=== PATIENT | female | born 1980 | race Caucasian/White ===

== ENCOUNTER 2021-01-18 22:28 | Emergency (ER) | payer MEDICAID, SELFPAY ==
[2021-01-18 22:43] VITALS: BP 184/114; PULSE 80; RESP 20; TEMP 36; O2SAT 98
--- NOTE | 2021-01-18 22:44 | ED.GENADUL_ITS ---
Discharge Plan Disposition Patient Disposition: HOME Condition: Good Discharge Details Clinical Impression: Back pain Primary Care Provider: Ashwin Moreno ED Provider: Eugenio Levine Home Meds and New Rx's Prescriptions: New lidocaine [Lidoderm] 1 PATCH patch 1 patch Topical Q24H Qty: 4 RF: 0 Continued cyclobenzaprine 5 mg Tablet 5 mg PO TID PRN PRNRF: 0 Discharge Instructions Instructions: Back Pain (ED) Additional Instructions: At this time your signs and symptoms are clinically consistent with a back sprai n. This can cause significant pain and take a fair bit of time to heal. I expect 1 to 2 months for potential resolution. In the meantime do not lift anything greater than 5 pounds for the next 2 weeks. Avoid any significant vigorous physical activity. Perform easy gentle regular activities at home without any significant bending or lifting. You have been given a prescription for Lidoderm patch. If your insurance does not cover this you can get [id number] Lidoderm patches at 4% which are almost just as effective. Please take the home Flexeril that you have, but I would recommend taking 10 mg every 8 hours instead of 5 mg. But do not take it when driving or operating any vehicles or heavy machinery, swimming, taking long baths, or operating firearms. Please use a heating pad as often as possible on your back. Perform daily gentle stretches on your back. Please continue to take the Tylenol and Motrin. You can take 1000 mg of Tylenol every 6 hours and 600 mg of ibuprofen every 6 hours. Please take the Hitchcock pain pill only as needed. You can take 2 pain pills at once if necessary. They do have Tylenol in them so do not take them with Tylenol. If you notice any worsening of your symptoms, or any new symptoms such as vomiting, diarrhea, fever, chills, shortness of breath, chest pain, numbness or tingling in your groin or legs, weakness in your legs, loss of contr ol for your bowels or bladder, or fainting , please return immediately to the emergency department for reevaluation. Please follow up with your primary care provider as soon as possible for reassessment and reevaluation. As always, it was a pleasure participating in your medical care today. Referrals: Ashwin Moreno [Primary Care Provider] - Discharge Data Discharge Date/Time-TO BE ENTERED AT DEPARTURE: 01/19/21 02:10 Medical Decision Making <ASHLEIGH Neal - Last Filed: 01/19/21 08:32> Patient is a pleasant 40-year-old female presenting today with chief complaint of left-sided back pain. She reports that earlier this week she was having some upper back pain that was relieved after visit with a chiropractor. However, she then began having severe left-sided flank pain last night. No trauma. She does states she performed regular heavy lifting. Denies any weakness. No radiation of pain. No fevers or chills. Denies any change in bowel or bladder habits. No rash. Patient has been using Tylenol, ibuprofen and Flexeril to help with her discomfort. Despite this, patient continues to have severe pain. Patient was seen again by her chiropractor today who evaluated her with concern for potential kidney stone given the location of her pain. He did attempt to help with discomfort and placed a steroid cream over the area of discomfort. She denies any dysuria, increased frequency or urgency. Patient states that she is currently menstruating. On exam, patient appears uncomfortable. She is hypertensive with a blood pressure of 184/114. Vital signs otherwise within normal limits. No midline or paraspinal tenderness. She does have left CVA discomfort with percussion. No rash. Patient does feel tight along this area suggestive of muscle spasm. Range of motion was not assessed secondary to the patient's severe discomfort educated with minimal movements. Patient is ambulating with an antalgic gait. No lower extremity weakness. Intact reflexes. No saddle paresthesias. Differential diagnosis this time includes musculoskeletal pain, muscle spasm, kidney stone. Plan to obtain baseline labs, treat the patient's pain and obtain renal CT. Discussed this plan with the patient is in agreement. At the end of my shift, care transition to Dr. Levine with labs and imaging pending. Patient was given 1 mg of Dilaudid and 4 mg of Zofran. <Eugenio Levine DO - Last Filed: 01/19/21 01:59> Case was signed out to me by my colleague Bridget Rodriguez, please refer to her HPI, physical exam assessment and plan. Patient came in for having pain in her upper back was initially relieved after visit with a chiropractor. Then returned his left flank pain last night. No radiation of the pain, no neurologic deficits. She has been taking 5 mg of Flexeril 3 times a day as well as Tylenol and Motrin but this has not been helping. Patient was signed out to me pending CT results and lab results. CT shows no acute process per virtual radiology aside from mild constipation. Labs are unremarkable, urinalysis shows a small amount of blood however the patient is currently on her menstrual period. Indication management the patient is feeling much better. Repeat exam shows no neurologic deficits. Suspect back sprain at this time. Recommend continuing the Flexeril but doing 10 mg 3 times daily instead, adding a Lidoderm patch, and continued heating pad use. Discussed red flags which to return. We will give 4 Hitchcock tablets for home use as needed. I have extensively reviewed the treatment plan and discharge instructions with the patient and their family. I have addressed all patient concerns at this time. The patient and family was made aware of what symptoms to monitor for that would warrant a return to the emergency department. Discussed the plan with the patient and family, they demonstrate verbal understanding and agreement with our assessment and plan at this time. The docu mentation in this chart was dictated using [employer] dictation software. Please excuse any dictation errors. FINDINGS: Lungs: The lungs are otherwise normal. Pleural spaces: There is no evidence of pneumothorax. There are no pleural effusions present. Heart: The cardiac structures are normal. Liver: There are no focal liver lesions present. Gallbladder and bile ducts: The gallbladder is normal. There is no cholelitiasis, wall thickening or pericholecystic fluid to suggest cholecystitis. There is no evidence of intrahepatic or extrahepatic biliary ductal dilation. Pancreas: The pancreas is normal. Spleen: The spleen is normal. Adrenal glands: The adrenal glands are normal without evidence of mass or enlargement. The adrenal glands are normal. Kidneys and ureters: The kidneys are normal no evidence of nephrolithiasis or hydronephrosis. The ureters are normal caliber and follow a normal caliber and course. Stomach and bowel: There is no evidence of intestinal obstruction. There is mild increased colonic fecal content. The colon is nondilated. These findings suggest a mild degree of constipation. Clinical correlation recommended. Appendix: A normal appendix is identified. There is no evidence of distention or periappendiceal inflammation to suggest appendicitis. Intraperitoneal space: There is no free intraperitoneal air. There is no evidence of free intraperitoneal or pelvic fluid. Vasculature: The aorta is unremarkable without evidence of significant atherosclerosis or aneurysmal disease. The peripheral arterial vascular system visualized is unremarkable. The portal venous system visualized is unremarkable. The peripheral venous vascular system visualized is unremarkable. Lymph nodes: There is no evidence of lymphadenopathy. Urinary bladder: There is nonspecific bladder wall thickening. This may be related to incomplete bladder filling. Reproductive: Unremarkable as visualized. Bones/joints: Unremarkable. No acute fracture. Soft tissues: The skeletal structures and soft tissues show no evidence of fracture or other acute processesThe extra-abdominal soft tissues are normal. IMPRESSION: Constipation. Otherwise, no definitive explanation for patient's current clini jovana presentation elicited on this study. Thank you for allowing us to participate in the care of your patient. Dictated and Authenticated by: Hemant Rand MD 01/19/2021 12:29 AM Eastern Time ([place] & [place]) HPI <ASHLEIGH Neal - Last Filed: 01/19/21 08:32> General Mode of arrival: ambulatory . Date/Time Provider Initiated Documentation: 01/18/21 22:29 . Limitations to Documentation: no limitations . Information obtained by: patient and RN notes reviewed . History of Present Illness 40 year old F presents to the emergency department with the chief complaint of left flank pain, described as severe, with intensity rated at 10. Quality is described as stabbing, and is localized to the back. Patient reports no radiation. Patient started experiencing this day(s) (1) and it has been constant. Immobilization improves symptom(s), Movement worsens symptoms . Patient notes nausea/vomiting (nausea, associates with severe pain); denies chest pain, diaphoresis, fever/chills, rash, shortness of breath and weakness. Patient did receive the following treatments prior to arrival, NSAID and other (APAP, steroid cream, chiropracter) Related Data Home Medications Medication Instructions Recorded Confirmed cyclobenzaprine 5 mg PO TID PRN PRN 01/19/21 01/19/21 lidocaine [Lidoderm] 1 patch TOPICAL Q24H #4 ea 01/19/21 Previous Rx's Medication Instructions Recorded lidocaine [Lidoderm] 1 patch TOPICAL Q24H #4 ea 01/19/21 Allergies Allergy/AdvReac Type Severity Reaction Status Date / Time codeine Allergy Intermediate Unverified 01/18/21 22:49 erythromycin base Allergy Mild Unverified 01/18/21 22:49 Review of Systems <ASHLEIGH Neal - Last Filed: 01/19/21 08:32> Constitutional Constitutional: Reports as per HPI, Denies chills, Denies fatigue, Denies fever(s), Denies frequent falls and Denies headache(s) Eyes Eyes: Denies change in vision ENT Ears, Nose, Mouth, and Throat: Denies headache(s) Cardiovascular Cardiovascular: Denies chest pain, Denies dyspnea and Denies dyspnea on exertion Respiratory Respiratory: Denies cough, Denies dyspnea and Denies dyspnea on exertion Gastrointestinal Gastrointestinal: Denies abdominal pain, Denies change in bowel habits and Denies fecal incontinence Genitourinary Genitourinary: Reports as per HPI, Denies urinary incontinence and Denies urinar y hesitancy Musculoskeletal Musculoskeletal: Reports as per HPI, Reports back pain, Denies muscle weakness, Denies numbness, Denies radiating pain into limb, Reports stiffness and Denies tingling Integumentary/Breasts Skin/Breast: Reports as per HPI and Denies rash Neurologic Neurologic: Reports as per HPI, Denies frequent falls, Denies headache(s), D enies localized weakness, Denies numbness, Denies radicular pain, Denies sensory deficit, Denies tingling and Denies paresthesias Endocrine Endocrine: Denies fatigue PFSH <ASHLEIGH Neal - Last Filed: 01/19/21 08:32> Surgical History HIP REPAIR CONGENITAL HIP DISLOCATION Tonsillectomy and adenoidectomy WEDGE OSTEOTOMY 02/27; MAXILLARY & MANDIBULAR Family History Mother Diabetes Depression Heart disease Father Diabetes Depression Heart disease Grandfather No problems noted. Grandfather Essential hypertension Heart disease Hyperlipidemia Grandmother No problems noted. Grandmother Diabetes Essential hypertension Heart disease Son No problems noted. Social History Smoking/Tobacco Use Status: Never Smoking risk assessment performed?: Yes Alcohol Intake: never Drug use: Never Substance use type: does not use Do you feel safe at home: Yes Do you feel safe in your relationship?: Yes Exam <ASHLEIGH Neal - Last Filed: 01/19/21 08:32> Const General: cooperative, healthy appearing, uncomfortable, no acute distress, well developed and well groomed Nutritional Appearance: well nourished and overweight Orientation: alert and awake Resp Effort & Inspection: normal respiratory effort and able to speak in complete sentences Auscultation: clear to auscultation bilaterally, no rales, no rhonchi and no wheezes Cardio Rate: regular rate Rhythm: regular rhythm Heart Sounds: S1 normal and S2 normal GI Inspection: normal to inspection Palpation: soft, not rigid and nontender Back/Spine/Pelvis Back: CVA tenderness (left side) Cervical Spine: cervical ROM normal Thoracic/Lumbar Spine: thoracic and lumbar spine normal to inspection, No thoraco-lumbar ROM normal (unable to rotate or flex secondary to pain), No mass, pain with thoraco-lumbar ROM, No paraspinal tenderness, No thoracic spinal te nderness, No lumbar spinal tenderness and straight leg raise positive (unable to perform at this time) Pelvis: no pain with anterior-posterior compression Sacroiliac joints: bilaterally nontender Back/spine/pelvis image: 1. area of tenderness. Palpable muscle spasm. No rash, erythema, warmth, swelling. No midline or paraspinal tenderness. Skin General skin exam: no rashes or lesions noted Neuro General: patient alert and patient awake Cognition: normal cognition Speech: speech normal Gait: antalgic Motor: muscle tone normal throughout, strength 5/5 throughout, no movement abnormalities noted and no fasciculations Sensory Exam: no sensory deficits noted (no saddle paresthesias) DTR's: Rt Patellar: 2+, Lt Patellar: 2+, Rt Ankle: 2+ and Lt Ankle: 2+ Extrem General: normal to inspection, full ROM, capillary refill normal, no joint enlargement, no pedal edema, no calf tenderness and normal gait Psych Appearance: grossly normal and well kempt Mental Status: mental status grossly normal Speech and Movement: speech and movement normal Sign Out <ASHLEIGH Neal - Last Filed: 01/19/21 08:32> Sign Out Data: Sign Out Comment: Care transition to Dr. Levine with labs and imaging pending. Patient received 1 mg of Dilaudid, 4 mg of Zofran. Last updated by Bridget Fountain PA at 01/18/21 23:15
--- NOTE | 2021-01-18 23:00 | DI.CT_ITS ---
EXAM: CT RENAL COLIC WO CLINICAL HISTORY: left flank pain. TECHNIQUE: Imaging Protocol: Axial computed tomography images with coronal and sagittal reformatted images were created and reviewed CONTRAST MATERIAL: Intravenous: none Oral: None COMPARISON: CT CHEST FOR PULMONARY EMBOLUS from 05/01/2010 FINDINGS: VISUALIZED LUNG BASES: No nodules nor pleural effusions evident. ABDOMEN: There is no ascites. LIVER: There are no obvious focal hepatic lesions evident of this noninfused study. GALLBLADDER/BILIARY: No obvious gallbladder pathology. CBD is not dilated. PANCREAS: No evidence of pancreatic mass nor dilatation of the pancreatic duct. SPLEEN: Spleen is not enlarged. No obvious intrasplenic lesions. ADRENALS: There are no significant adrenal masses. KIDNEYS:No cysts evident. No solid renal masses. No calculi nor hydronephrosis. . ABDOMINAL AORTA: Abdominal aorta is not enlarged. LYMPH NODES: There is no retroperitoneal nor paraaortic adenopathy. ABDOMINAL WALL/GI: No evidence of significant anterior abdominal wall hernia. No bowel obstruction. PELVIS: LYMPH NODES: There is no intrapelvic nor inguinal adenopathy. GI: No evidence of appendicitis.No evidence of sigmoid diverticulitis. URINARY BLADDER: No calculi nor obvious masses evident REPRODUCTIVE: Age-appropriate OSSEOUS: Increased density of both sides the sacroiliac joints consistent with sacroiliitis. There i s no ankylosis. IMPRESSION: 1. Increased density on the iliac side of both sacroiliac joints consistent with probable sacroiliiti s. There is no ankylosis of SI joints. No ominous osseous lesions evident. RADIATION DOSE DELIVERED: 1,136mGy.cm Total DLP DATA REPOSITORY: All CT scans at this facility are submitted to the National Radiology Data Registry (NRDR) Dose Index Registry (DIR) with the [employer] (ACR). RADIATION OPTIMIZATION: All CT scans at this facility use at least one of these dose optimization te chniques: automated exposure control; mA and/or kV adjustment per patient size (includes targeted exa ms where dose is matched to clinical indication); or iterative reconstruction.
[2021-01-18 23:18] LABS: Abs Immature Grans 0.01 10^3/uL (0.0-0.06); Absolute Basophil Count 0.06 10^3/uL (0.0-0.2); Absolute Eosinophil Count 0.18 10^3/uL (0.0-0.7); Absolute Lymphocyte Count 2.22 10^3/uL (1.2-3.4); Absolute Monocyte Count 0.42 10^3/uL (0.1-0.8); Absolute Neutrophil Count 4.79 10^3/uL (1.2-6.7); Basophils % 0.8; Eosinophils % 2.3; HCT 39.3 % (36.0-46.0); HGB 13.1 g/dL (11.2-15.7); Immature Grans % 0.1; Lymphocytes % 28.9; MCH 28.8 pg (27.0-33.0); MCHC 33.3 % (32.0-36.0); MCV 86.4 fL (80-95); MPV 9.7 fL (8.0-11.0); Monocytes % 5.5; Neutrophils % 62.4; Nucleated RBC 0 %; Platelet Count 414 10^3/uL (130-400); RBC 4.55 10^6/uL (3.93-5.22); RDW 13.2 % (11.7-14.6); RDW-SD 41.1 fL; WBC 7.68 10^3/uL (4.4-10.8)
[2021-01-18] MEDS: Ondansetron 4 MG/2 ML VIAL IVP (23:27)
[2021-01-18] MEDS: HYDROmorphone 2 MG/ML VIAL 1 MG IVP (23:29)
[2021-01-18 23:37] LABS: ALT 18 U/L (14-59); AST 8 U/L (15-37); Albumin 3.4 g/dL (3.4-5.0); Alkaline Phosphatase 165 U/L (46-116); Anion Gap 9.5 mmol/L (3-11); BUN 7 mg/dL (7-18); Bilirubin, Total 0.3 mg/dL (0.2-1.0); CO2 27.5 mmol/L (21.0-32.0); CREATININE 0.7 mg/dL (0.55-1.02); Calcium 8.7 mg/dL (8.5-10.1); Chloride 103 mmol/L (98-107); Glucose 113 mg/dL (74-106); Potassium 3.3 mmol/L (3.5-5.1); Sodium 140 mmol/L (136-145); Total Protein 7.4 g/dL (6.4-8.2)
[2021-01-18 23:50] VITALS: BP 151/82; PULSE 65; RESP 18; O2SAT 95
[2021-01-19 00:15] VITALS: BP 135/82; PULSE 68; RESP 16; O2SAT 96
--- NOTE | 2021-01-19 00:30 | DI.VRAD_ITS ---
PROCEDURE INFORMATION: Exam: CT Abdomen And Pelvis Without Contrast Exam date and time: 01/18/2021 11:01 PM Age: 40 years old Clinical indication: Abdominal pain; Patient HX: Left flank pain TECHNIQUE: Imaging protocol: Computed tomography of the abdomen and pelvis without contrast. COMPARISON: No relevant prior studies available. FINDINGS: Lungs: The lungs are otherwise normal. Pleural spaces: There is no evidence of pneumothorax. There are no pleural effusions present. Heart: The cardiac structures are normal. Liver: There are no focal liver lesions present. Gallbladder and bile ducts: The gallbladder is normal. There is no cholelitiasis, wall thickening or pericholecystic fluid to suggest cholecystitis. There is no evidence of intrahepatic or extrahepatic biliary ductal dilation. Pancreas: The pancreas is normal. Spleen: The spleen is normal. Adrenal glands: The adrenal glands are normal without evidence of mass or enlargement. The adrenal glands are normal. Kidneys and ureters: The kidneys are normal no evidence of nephrolithiasis or hydronephrosis. The ureters are normal caliber and follow a normal caliber and course. Stomach and bowel: There is no evidence of intestinal obstruction. There is mild increased colonic fecal content. The colon is nondilated. These findings suggest a mild degree of constipation. Clinical correlation recommended. Appendix: A normal appendix is identified. There is no evidence of distention or periappendiceal inflammation to suggest appendicitis. Intraperitoneal space: There is no free intraperitoneal air. There is no evidence of free intraperitoneal or pelvic fluid. Vasculature: The aorta is unremarkable without evidence of significant atherosclerosis or aneurysmal disease. The peripheral arterial vascular system visualized is unremarkable. The portal venous system visualized is unremarkable. The peripheral venous vascular system visualized is unremarkable. Lymph nodes: There is no evidence of lymphadenopathy. Urinary bladder: There is nonspecific bladder wall thickening. This may be related to incomplete bladder filling. Reproductive: Unremarkable as visualized. Bones/joints: Unremarkable. No acute fracture. Soft tissues: The skeletal structures and soft tissues show no evidence of fracture or other acute processesThe extra-abdominal soft tissues are normal. IMPRESSION: Constipation. Otherwise, no definitive explanation for patient's current clinical presentation elicited on this study. Dictated and Authenticated by: Hemant Rand MD. Ordering:KATH Gill MD
[2021-01-19 00:45] VITALS: BP 136/76; PULSE 71; RESP 16; O2SAT 97
[2021-01-19 01:01] LABS: Bilirubin Negative (Negative); Blood Large (Negative); Clarity Sl Cloudy (Clear); Glucose Negative (Negative); Ketones Negative (Negative); Leukocyte Esterase Negative (Negative); Nitrite Negative (Negative); Specific Gravity 1.025 (1.005-1.025); pH 6.5 (5-8)
[2021-01-19 01:05] LABS: Bacteria Rare HPF (Negative); C & S Indicated? No; Casts Negative LPF (Negative); Crystals Negative HPF (Negative); Epithelial Cells Few HPF (Negative); Mucus Negative (Negative); WBC Negative HPF (0-5)
[2021-01-19 01:15] VITALS: BP 132/72; PULSE 76; RESP 16; O2SAT 96
[2021-01-19 01:45] VITALS: BP 138/78; PULSE 78; RESP 16; O2SAT 96
[2021-01-19] MEDS: Ketorolac 30 MG/ML VIAL IVP (01:56)
[2021-01-19] MEDS: HYDROmorphone 2 MG/ML VIAL 1 MG IVP (01:58)
[2021-01-19 02:00] VITALS: BP 155/83; PULSE 75; RESP 16; O2SAT 96
== END 2021-01-19 02:10 | disposition home or self-care (01) ==
PROVIDERS: Physician Assistant; Emergency Provider Student in an Organized Health Care Education/Training Program; PCP Family Medicine
DX: M54.9 Dorsalgia, unspecified (principal)
CPT/HCPCS: 80053; 81025; 96374; 96375; 96376; 99284; 74176; 81003; 81015; 85025; J1885; J2405

== ENCOUNTER 2021-02-12 11:53 | Outpatient (CLI) | payer MEDICAID, SELFPAY ==
--- NOTE | 2021-02-12 11:15 | DI.RAD_ITS ---
EXAM: XR SHOULDER LT COMPLETE 2+V CLINICAL HISTORY: left shoulder pain. TECHNIQUE: 2D digital imaging was performed. COMPARISON: CR XR FOREIGN SHOULDER LEFT from 08/10/2020 FINDINGS: Two views reveal no evidence of fracture or dislocation no abnormal soft tissue calcifications. No d egenerative changes evident in the glenohumeral and AC joints. No evidence of Hill-Sachs deformity. No os acromiale. Bone density is normal. IMPRESSION: DATA REPOSITORY: RADIATION DOSE DELIVERED:
== END 2021-02-12 11:54 | disposition home or self-care (01) ==
LOC: DIORS 11:53
PROVIDERS: PCP Family Medicine; Referring Provider Family Medicine; Visit Provider Student in an Organized Health Care Education/Training Program
DX: M25.512 Pain in left shoulder (principal)
CPT/HCPCS: 73030

== ENCOUNTER 2021-03-05 02:08 | Outpatient (CLI) | payer MEDICAID, SELFPAY ==
--- NOTE | 2021-03-05 06:45 | DI.MRI_ITS ---
Exam(s) MR UPPER JOINT LT WO EXAM: MR UPPER JOINT LT WO CLINICAL HISTORY: Persistent pain,BURSITIS LT SHOULDER,ADHESIVE CAPSULITIS,TENDINITIS,M75.02, TECHNIQUE: Multiplanar multisequence MRI of the shoulder was performed. COMPARISON: CR XR SHOULDER LT COMPLETE 2+V from 02/12/2021 FINDINGS: MARROW:There is no evidence of fracture no bone contusion. On the axial images there is a subtle def ect in the posterolateral upper humeral head, possibly a small Hill-Sachs deformity but there is no s urrounding bone edema. Also no evidence of bony Bankart lesion in the glenoid fossa. ROTATOR CUFF MECHANISM: AC JOINT/ACROMIUM: AC joint appears unremarkable. No degenerative changes. No osteophytes. No impi ngement. Also no impingement on the undersurface of the acromion. No calcification in the coracoacr omial ligament.. There is no evidence of os acromiale. Supraspinatus: Mild increased signal. No evidence of partial nor full-thickness tear. No atrophy Infraspinatus: Intact. No evidence of tear nor muscle atrophy. There is small degenerative subartic ular cyst in the humeral head immediately subjacent to the infraspinatus insertion site. This measur es 5 x 4 millimeters. Teres Minor: Intact. No evidence of tear nor muscle atrophy. Subscapularis/anterior cuff: Intact. No abnormal signal at the level of the multipennate insertional fibers. No significant tear nor atrophy. BICEPS TENDON: Normally position in the intertubercular groove. No evidence of tear. No tenosynovitis. LABRUM: No labral tear identified. No evidence of paralabral cyst. LABROLIGAMENTOUS/CAPSULAR COMPLEX: There is no evidence of avulsion of the anterior-inferior labrum, capsule, inferior glenohumeral liga ment complex nor disruption of the scapular periosteum to suggest the presence of a Bankart lesion. Also no evidence of obvious Bankart lesion variants. GLENOHUMERAL JOINT: No joint effusion nor obvious loose intra-articular bodies. No chondral defects. No osteophytes. No degenerative subarticular cysts. No evidence of capsular tear. The inferior gle nohumeral ligament is intact. There is no fluid in the subacromial-subdeltoid bursa. QUADRILATERAL SPACE: No evidence of mass in the region of the axillary nerve and dorsal circumflex hu meral vessels. Visualized triceps muscle at this level appears unremarkable. IMPRESSION: 1. Minimal findings. Minimal signal abnormality supraspinous. No partial nor full-thickness tear. No atrophy. No fluid in the subacromial-subdeltoid bursa. Other components of the rotator cuff mech anism appear intact. There is no obvious impingement. 2. No evidence of biceps tendon tear nor displacement nor obvious labral tearing. No evidence of par alabral cyst. 3. Very subtle defect on the posterior lateral aspect of the humeral head but without surrounding bon e edema. Correlation with any history of prior anterior dislocation recommended. DATA REPOSITORY:
== END 2021-03-05 02:28 ==
PROVIDERS: PCP Family Medicine; Visit Provider Student in an Organized Health Care Education/Training Program
DX: M25.512 Pain in left shoulder (principal); M75.02 Adhesive capsulitis of left shoulder; M75.22 Bicipital tendinitis, left shoulder; M75.52 Bursitis of left shoulder
CPT/HCPCS: 73221

== ENCOUNTER 2021-04-19 13:39 | Outpatient (REF) | payer MEDICAID, SELFPAY ==
[2021-04-21 17:11] LABS: COVID-19 RT-PCR UVMMC Result Negative (Negative)
== END 2021-04-19 13:40 | disposition home or self-care (01) ==
LOC: LBN 13:39
PROVIDERS: PCP Family Medicine; Visit Provider Physician Assistant Medical
DX: Z20.822 Contact with and (suspected) exposure to COVID-19 (principal); J06.9 Acute upper respiratory infection, unspecified
CPT/HCPCS: U0003

== ENCOUNTER 2022-02-07 18:04 | Outpatient (REF) | payer MEDICAID, SELFPAY ==
[2022-02-09 12:13] LABS: COVID-19 RT-PCR UVMMC Result Negative (Negative)
== END 2022-02-07 18:05 | disposition home or self-care (01) ==
LOC: LBN 18:04
PROVIDERS: PCP Family Medicine; Visit Provider Physician Assistant Medical
DX: Z20.822 Contact with and (suspected) exposure to COVID-19 (principal); J06.9 Acute upper respiratory infection, unspecified
CPT/HCPCS: U0003

== ENCOUNTER 2025-01-26 14:47 | Outpatient (REF) | payer MEDICAID, SELFPAY ==
[2025-01-26 15:43] LABS: Abs Immature Grans 0.03 10^3/uL (0.0-0.06); Absolute Basophil Count 0.02 10^3/uL (0.0-0.2); Absolute Eosinophil Count 0.16 10^3/uL (0.0-0.7); Absolute Lymphocyte Count 1.49 10^3/uL (1.2-3.4); Absolute Monocyte Count 0.41 10^3/uL (0.1-0.8); Basophils % 0.2 %; Eosinophils % 1.9 %; HCT 42.9 % (36.0-46.0); HGB 13.9 g/dL (11.2-15.7); Immature Grans % 0.4 %; Lymphocytes % 18.1 %; MCH 27.9 pg (27.0-33.0); MCHC 32.4 % (32.0-36.0); MCV 86 fL (80-95); MPV 9.9 fL (8.0-11.0); Neutrophils % 74.4 %; Platelet Count 403 10^3/uL (130-400); RBC 4.98 10^6/uL (3.93-5.22); RDW 14.4 % (11.7-14.6); RDW-SD 45.3 fL; WBC 8.21 10^3/uL (4.4-10.8)
[2025-01-26 16:02] LABS: ALT 18 U/L (14-59); AST 17 U/L (15-37); Albumin 3.9 g/dL (3.4-5.0); Alkaline Phosphatase 159 U/L (46-116); Anion Gap 11.5 mmol/L (3-11); BUN 8 mg/dL (7-18); Bilirubin, Total 0.5 mg/dL (0.2-1.0); CO2 22.5 mmol/L (21.0-32.0); CREATININE 0.6 mg/dL (0.55-1.02); Calcium 9.4 mg/dL (8.5-10.1); Calculated LDL 141 mg/dL (<100); Chloride 106 mmol/L (98-107); Cholesterol 234 mg/dL (<200); Estimated GFR 114.86 (mL/min/1.73m2); Glucose 140 mg/dL (74-106); HDL Cholesterol 49 mg/dL (>or=50); Potassium 4.8 mmol/L (3.5-5.1); Sodium 140 mmol/L (136-145); Total Protein 7.7 g/dL (6.4-8.2); Triglyceride 222 mg/dL (<150)
[2025-01-26 16:05] LABS: Hemoglobin A1C 6.1 % (<5.7)
== END 2025-01-26 14:48 | disposition home or self-care (01) ==
LOC: NCHCN 14:47
PROVIDERS: PCP Family Medicine; Visit Provider Nurse Practitioner Family
DX: Z00.00 Encounter for general adult medical examination without abnormal findings (principal)
CPT/HCPCS: 80053; 80061; 83036; 84443; 85025

== ENCOUNTER 2025-01-27 04:06 | Emergency (ER) | payer MEDICAID, SELFPAY ==
[2025-01-27] VITALS (19 sets, daily range): BP systolic 105–133; BP diastolic 31–87; PULSE 75–94; RESP 13–24; O2SAT 98–100
--- NOTE | 2025-01-27 03:59 | ED.GENADUL_ITS ---
Discharge Plan Disposition Patient Disposition: Home Condition: Stable Discharge Details Clinical Impression: Adverse effects of medication, Diarrhea Primary Care Provider: Ashwin Moreno ED Provider: Andres Benton [place] Meds and New Rx's Prescriptions: Continued lamotrigine 150 mg tablet 175 mg PO DAILY Patient Comments: TAKE 1 TABLET BY MOUTH DAILY DIRECTED clonidine HCl 0.1 mg tablet 0.1 mg PO ONCE Patient Comments: TAKE 2 TABLETS BY MOUTH AT BEDTIME CAN INCREASE TO 3 TABLETS NEEDED FOR SYMPTOM EXACERBATION sertraline 50 mg tablet 50 mg PO ONCE Patient Comments: TAKE 1 AND 1/2 TABLETS BY MOUTH ONCE DAILY Held quetiapine 100 mg tablet 100 mg PO DAILY Hold Instructions: discuss with PCP Patient Comments: TAKE 1 TABLET BY MOUTH AT BEDTIME. MAY DECREASE BY HALF TABLET OR. INCREASE BY HALF TABLET INCREMENTS TO. TOTAL DAILY DOSE OF 200 MG Discharge Instructions Instructions: Diarrhea, Adult ED Additional Instructions: You were seen in the ED after being found on the floor by a family. I suspect you are oversedated from the Seroquel which she took for the first time this evening. Your laboratory studies, EKG, CT head are all reassuring. You were given fluids to provide hydration given the report of excessive diarrhea you have been having. I would not take the Seroquel further until you can discuss with your primary care. Continue to push fluids to stay hydrated. Return to ED for any severe worsening headache, neurologic change, abdominal pain, bloody diarrhea, chest pain, shortness of breath, other concerns. Referrals: Ashwin Moreno [Primary Care Provider] - [facility] General Mode of arrival: EMS . Date/Time Provider Initiated Documentation: 01/27/25 04:08 . Limitations to Documentation: no limitations . Information obtained by: patient, EMS and RN notes reviewed . HPI Narrative: Patient presents to ED after presumed syncopal event at home. Patient has been ill with diarrhea for the last couple of days. She denies having any vomiting or abdominal pain. She denies any fever. She did see her doctor today. She received a tetanus booster. She was also started on Seroquel and took her first dose this evening. Woke up in the counter pocket sewer with nausea. She went into the bathroom thinking she was going to vomit. She had diarrhea that she describes as watery and has been watery since it started. She apparently had a syncopal event and was found on the floor by her son. She complains of feeling weak all over and out of it. Continues to deny any abdominal pain. Denies any chest pain, shortness of breath, back pain, neck pain, headache or focal neurologic change. Related Data Home Medications ?Medication ?Instructions ?Recorded ?Confirmed clonidine HCl 0.1 mg tablet 0.1 mg PO ONCE 01/27/25 01/27/25 lamotrigine 150 mg tablet 175 mg PO DAILY 01/27/25 01/27/25 quetiapine 100 mg tablet 100 mg PO DAILY 01/27/25 01/27/25 sertraline 50 mg tablet 50 mg PO ONCE 01/27/25 01/27/25 Allergies Allergy/AdvReac Type Severity Reaction Status Date / Time codeine Allergy Intermediate Unknown Unverified 01/27/25 04:08 erythromycin base Allergy Mild Unknown Unverified 01/27/25 04:08 General WILLIAM: 3 Exam Narrative Exam Narrative: Const: Obese female in NAD. VS per triage. HEENT: NC/AT. Normal facial exam. Neck: Supple. Trachea midline. No posterior midline tenderness. Lungs: Normal respiratory effort. Lungs are clear. Cor: RRR without murmur. Good radial pulses. GI: Soft/ND/NT. Neuro: A+O x 3. Normal speech, mentation. Cranial nerves II - XII grossly intact. No gross motor or sensory deficit. Generalized weakness only. Ext: No C/C/E. Medical Decision Making Patient presenting to ED after syncopal event at home. She has had a diarrheal illness for the last couple of days. She was started on Seroquel with her first dose this evening. She arrives here awake and alert but still complaining of generalized weakness. Does not appear to have suffered an injury after falling off the toilet. Her abdomen is benign. Cervical spine cleared clinically. IV is in place and blood sugar per EMS was normal. Will obtain EKG, laboratory studies, CT head. Will continue fluids. 06:10 - Patient's laboratory studies are reassuring and essentially normal. Her glucose is a little high at 164. CT head is negative. Vital signs have been stable. She still pretty tired and just wants to sleep. Wakes up easily and able to carry on a conversation. Suspect the majority of this is related to the Seroquel which she took this evening for the first time. She was started on a 100 mg dosage. Her and son are here. She and they are comfortable going home and letting her sleep. She does not wish to take the Seroquel again. She will discuss with her primary care next week. Return precautions provided. Lab Data Lab results reviewed: Yes I reviewed the patient's lab results. Lab results narrative: see MDM ECG Data Attestation: I personally reviewed and interpreted this ECG (s) as follows: Prior ECG tracings: not available for review Interpretation: see EKG/MDM PFSH All Active Problems (Updated 01/27/25 @ 06:13 by Andres Betnon MD) Diarrhea (Acute) Adverse effects of medication (Acute) Medical History (Updated 01/27/25 @ 06:13 by Andres Benton MD) Anxiety Depression (07/25/12) hospitalized 06/2011 Surgical History WEDGE OSTEOTOMY 02/27; MAXILLARY & MANDIBULAR Tonsillectomy and adenoidectomy HIP REPAIR CONGENITAL HIP DISLOCATION Family History Mother Diabetes Depression Heart disease Father Diabetes Depression Heart disease Grandfather No problems noted. Grandfather Essential hypertension Heart disease Hyperlipidemia Grandmother No problems noted. Grandmother Diabetes Essential hypertension Heart disease Son No problems noted. Social History Smoking/Tobacco Use Status: Never Smoking risk assessment performed?: Yes Alcohol Intake: never Drug use: Never Substance use type: does not use Current gender identity: female Do you feel safe at home: Yes Do you feel safe in your relationship?: Yes
--- NOTE | 2025-01-27 04:00 | RT.EKG_ITS ---
APPROVED REPORT Exam: Resting ECG Reason for Exam: syncope Patient Location: E HR:76 bpm ECG Measurements Heart Rate 76 AXIS MN 173 P 49 QRSd 86 QRS 31 QT 398 T 34 QTc 448 Conclusion Sinus rhythm...normal P axis, V-rate 60- 99 Probable left atrial enlargement...P >50mS, <-0.10mV V1 Normal [place] Nonspecific ST-T changes
[2025-01-27] MEDS: Normal Saline 1,000 ML 1000 ML IV ×2 (04:17→05:32)
[2025-01-27 04:31] LABS: Abs Immature Grans 0.02 10^3/uL (0.0-0.06); Absolute Basophil Count 0.04 10^3/uL (0.0-0.2); Absolute Eosinophil Count 0.22 10^3/uL (0.0-0.7); Absolute Monocyte Count 0.42 10^3/uL (0.1-0.8); Absolute Neutrophil Count 6.42 10^3/uL (1.2-6.7); Basophils % 0.4 %; Eosinophils % 2.5 %; HCT 45.1 % (36.0-46.0); HGB 14.4 g/dL (11.2-15.7); Immature Grans % 0.2 %; Lymphocytes % 20.2 %; MCHC 31.9 % (32.0-36.0); MCV 88 fL (80-95); MPV 9.6 fL (8.0-11.0); Monocytes % 4.7 %; Platelet Count 326 10^3/uL (130-400); RBC 5.14 10^6/uL (3.93-5.22); RDW 14.3 % (11.7-14.6); RDW-SD 46.4 fL; WBC 8.92 10^3/uL (4.4-10.8)
[2025-01-27] MEDS: Ondansetron 4 MG/2 ML VIAL IVP (04:36)
[2025-01-27 04:55] LABS: ALT 17 U/L (14-59); AST 9 U/L (15-37); Albumin 3.9 g/dL (3.4-5.0); Alkaline Phosphatase 158 U/L (46-116); Anion Gap 8.7 mmol/L (3-11); BUN 9 mg/dL (7-18); Bilirubin, Total 0.5 mg/dL (0.2-1.0); CO2 26.3 mmol/L (21.0-32.0); Calcium 9.2 mg/dL (8.5-10.1); Chloride 104 mmol/L (98-107); Estimated GFR 72.13 (mL/min/1.73m2); Glucose 164 mg/dL (74-106); Lipase 32 U/L (<78); Magnesium 1.8 mg/dL (1.8-2.4); Potassium 3.9 mmol/L (3.5-5.1); Sodium 139 mmol/L (136-145); Total Protein 8.3 g/dL (6.4-8.2)
[2025-01-27 05:01] LABS: HCG Qual (Serum) Negative
--- NOTE | 2025-01-27 05:29 | DI.CT_ITS ---
Exam(s) CT HEAD WO EXAM: CT HEAD WO CLINICAL HISTORY: fell of toilet, LOC. TECHNIQUE: Imaging Protocol: Axial computed tomography images with coronal and sagittal reformatted images were created and reviewed COMPARISON: There are no priors for comparison. FINDINGS: Ventricles and Extra axial spaces: Normal in size and morphology for the patient's age. Hemorrhage: None. Cerebral parenchyma: Normal. Midline shift: None. Brainstem/Cerebellum: Normal. Calvarium: Normal. Visualized Paranasal sinuses/Mastoids: Clear. Soft Tissues: Unremarkable. IMPRESSION: No acute intracranial process. RADIATION DOSE DELIVERED: 854.33mGy.cm Total DLP DATA REPOSITORY: All CT scans at this facility are submitted to the National Radiology Data Registry (NRDR) Dose Index Registry (DIR) with the [employer] (A[employer]). RADIATION OPTIMIZATION: All CT scans at this facility use at least one of these dose optimization te chniques: automated exposure control; mA and/or kV adjustment per patient size (includes targeted exa ms where dose is matched to clinical indication); or iterative reconstruction.
--- NOTE | 2025-01-27 06:02 | DI.VRAD_ITS ---
PROCEDURE INFORMATION: Exam: CT Head Without Contrast Exam date and time: 01/27/2025 5:24 AM Age: 44 years old Clinical indication: Injury or trauma; Fall; Blunt trauma (contusions or hematomas); With loss of consciousness; Not specified; Injury date: 01/27/25; Fell of toilet, loc TECHNIQUE: Imaging protocol: Computed tomography of the head without contrast. Radiation optimization: All CT scans at this facility use at least one of these dose optimization techniques: automated exposure control; mA and/or kV adjustment per patient size (includes targeted exams where dose is matched to clinical indication); or iterative reconstruction. COMPARISON: No relevant prior studies available. FINDINGS: Brain: Normal. No hemorrhage or edema. Cerebral ventricles: No ventriculomegaly. Paranasal sinuses: Visualized sinuses are unremarkable. No fluid levels. Mastoid air cells: Unremarkable. Bones: Unremarkable. No acute fracture. Soft tissues: Unremarkable. IMPRESSION: No acute intracranial abnormality. Dictated and Authenticated by: Enzo Munoz MD. Orderin Chetan Campos MD
== END 2025-01-27 06:39 | disposition home or self-care (01) ==
PROVIDERS: Emergency Provider Emergency Medicine; PCP Family Medicine
DX: R41.82 Altered mental status, unspecified (principal); R19.7 Diarrhea, unspecified; R55 Syncope and collapse; T43.595A Adverse effect of other antipsychotics and neuroleptics, initial encounter; Y92.89 Other specified places as the place of occurrence of the external cause
CPT/HCPCS: 36415; 80053; 82962; 83690; 93005; 96361; 96374; 99285; 70450; 83735; 84703; 85025; 93010; 99284; J2405

== ENCOUNTER 2025-04-03 01:23 | Outpatient (CLI) | payer MEDICAID, SELFPAY ==
--- NOTE | 2025-04-03 | DI.US_ITS ---
Exam(s) US ABDOMEN LIMITED EXAM: US ABDOMEN LIMITED CLINICAL HISTORY: R74.8 ABN levels of other serum enzymes, elevated alkaline phosphatase TECHNIQUE: Ultrasound abdomen performed using standard protocol. COMPARISON: CT CT RENAL COLIC WO from 01/18/2021 FINDINGS: Visualization of portion of the liver is limited due to patient body habitus. PANCREAS: Normal where visualized. LIVER: There is increased echogenicity of the liver consistent with fatty infiltration. Hepatopetal flow in the Portal Vein. The liver measures in 19.0 cm length. No evidence of a hepatic mass. GALLBLADDER: No evidence of cholelithiasis. No evidence of wall thickening. No pericholecystic fluid identified. BILIARY SYSTEM: Common bile duct measures < 7 mm. No intrahepatic biliary ductal dilation. FERRARO'S SIGN: Negative. RIGHT KIDNEY: Kidney is normal in size. No evidence of renal calculi. No evidence of hydronephrosis. No renal mass or cyst identified. ASCITES: None seen. IMPRESSION: Hepatic steatosis and hepatomegaly. DATA REPOSITORY:
== END 2025-04-03 01:43 ==
LOC: DI 01:23
PROVIDERS: PCP Family Medicine; Visit Provider Nurse Practitioner Family
DX: R16.0 Hepatomegaly, not elsewhere classified (principal); K76.0 Fatty (change of) liver, not elsewhere classified
CPT/HCPCS: 76705

== ENCOUNTER 2025-09-13 09:40 | Outpatient (CLI) | payer MEDICAID, SELFPAY ==
[2025-09-13 10:48] LABS: TSH 3.90 uIU/mL (0.55-4.78)
[2025-09-13 11:01] LABS: Lithium 0.60 mmol/L (0.60-1.20)
[2025-09-13 11:36] LABS: Albumin 4.3 g/dL (3.4-5.0); Anion Gap 5.3 mmol/L (3-11); BUN 8 mg/dL (9-23); CO2 28.7 mmol/L (20.0-31.0); Calcium 9.0 mg/dL (8.3-10.6); Chloride 106 mmol/L (98-107); Glucose 113 mg/dL (74-106); Potassium 4.0 mmol/L (3.5-5.1); Sodium 140 mmol/L (136-145)
== END 2025-09-13 09:41 | disposition home or self-care (01) ==
LOC: LBO 09:40
PROVIDERS: PCP Family Medicine; Visit Provider Nurse Practitioner Family
DX: F31.61 Bipolar disorder, current episode mixed, mild (principal); F51.05 Insomnia due to other mental disorder; F43.81 Prolonged grief disorder
CPT/HCPCS: 36415; 80069; 80178; 84439; 84443

== ENCOUNTER 2025-10-22 16:29 | Outpatient (REF) | payer MEDICAID, SELFPAY ==
[2025-10-22 17:43] LABS: Hemoglobin A1C 6.0 % (<5.7)
[2025-10-22 17:47] LABS: ALT 15 U/L (10-49); AST 17 U/L (<34); Albumin 3.9 g/dL (3.2-5.0); Alkaline Phosphatase 129 U/L (46-116); Anion Gap 8.6 mmol/L (3-11); BUN 10 mg/dL (9-23); Bilirubin, Total 0.5 mg/dL (0.2-1.2); CO2 24.4 mmol/L (20.0-31.0); Calcium 8.5 mg/dL (8.3-10.6); Chloride 110 mmol/L (98-107); Cholesterol 186 mg/dL (<200); Glucose 102 mg/dL (74-106); HDL Cholesterol 49 mg/dL (>or=50); Potassium 4.3 mmol/L (3.5-5.1); Sodium 143 mmol/L (136-145); Total Protein 6.3 g/dL (5.7-8.2)
[2025-10-23 18:57] LABS: Hepatitis C Ab w Rflx HCV PCR Negative (Negative)
[2025-10-23 18:59] LABS: HIV-1/2 Ag & Ab Screen Negative (Negative)
== END 2025-10-22 16:30 | disposition home or self-care (01) ==
LOC: NCHCN 16:29
PROVIDERS: PCP Family Medicine; Visit Provider Nurse Practitioner Family
DX: R73.03 Prediabetes (principal); Z00.00 Encounter for general adult medical examination without abnormal findings
CPT/HCPCS: 80053; 80061; 86803; 87389; 83036